=== PATIENT | male | born 1960 | race Caucasian/White ===

== ENCOUNTER 2020-06-17 17:53 | Emergency (ER) | payer OTHER, BC | END 2020-06-17 19:40 | disposition home or self-care (01) | LOC: ER1 17:53 | DX: S51.812A Laceration without foreign body of left forearm, initial encounter (principal); W45.8XXA Other foreign body or object entering through skin, initial encounter; Y92.69 Other specified industrial and construction area as the place of occurrence of the external cause | CPT/HCPCS: 12001; 99282 ==

== ENCOUNTER → 2021-07-28 | Outpatient (CLI) | payer OTHER | LOC: KOH-I 14:30 | DX: Z87.891 Personal history of nicotine dependence (principal) | CPT/HCPCS: 71271 ==